=== PATIENT | female | born 1985 | race Caucasian/White ===

== ENCOUNTER 2019-05-29 15:58 | Emergency (ER) | payer OTHER, SELFPAY ==
[2019-05-29 15:59] VITALS: BP 158/85; PULSE 70; RESP 15; TEMP 36.7; O2SAT 98; BMI 49.8
--- NOTE | 2019-05-29 16:18 | ED.DCSUM_ITS ---
History of Present Illness <Damaso Benito - Last Filed: 05/29/19 16:53> Informant: Patient Onset: Today Narrative: Patient presents to the ED with right index finger laceration. Prior to arrival, she was attempting to open a can of chicken when she cut the dorsal aspect of her right index finger over the PIP joint. She went to urgent care and was referred to the ED. She denies any decreased range of motion of her right hand or decreased sensation. Tetanus status is unknown. <ChariAriana - Last Filed: 05/29/19 17:17> Chief Complaint: Laceration Past Medical History <Damaso Benito - Last Filed: 05/29/19 16:53> <ChariAriana - Last Filed: 05/29/19 17:17> - Allergies and Home Meds Allergies/Adverse Reactions: Allergies No Known Allergies Allergy (Verified 05/29/19 16:02) Primary Care Physician: Roberto Parks [Primary Care Provider] - Review of Systems General: Denies: Chills, Fever, Sweats Eyes: Denies: Visual changes - bilaterally, Diplopia ENT: Denies: Rhinorrhea, Sore throat Cardiovascular: Denies: Chest pain, Palpitations Respiratory: Denies: Dyspnea, Cough, Dyspnea on exertion Gastrointestinal: Denies: Abdominal pain, Nausea, Vomiting, Diarrhea, Melena, Hematochezia Genitourinary: Denies: Dysuria, Hematuria, Frequency Musculoskeletal: Denies: Back pain, Extremity Pain Skin: Reports: Wounds. Denies: Rash, Abscess Neurological: Denies: Headache, Weakness, Numbness <ChariAriana - Last Filed: 05/29/19 17:17> Physical Exam Vital Signs/Narrative: Vital Signs Temp Pulse Resp BP Pulse Ox 05/29/19 15:59 98.0 F 70 15 158/85 H 98 <Damaso Benito - Last Filed: 05/29/19 16:53> Vital Signs/Narrative: Vital Signs Temp Pulse Resp BP Pulse Ox 05/29/19 15:59 98.0 F 70 15 158/85 H 98 General: Well nourished, Well developed, No Acute Distress Head: Normocephalic, Atraumatic Eyes: Perrl, EOMI ENT: Moist mucous membranes, No rhinorrhea Neck: Supple, Nontender Cardiovascular: Regular rate, Regular rhythm, No murmurs Respiratory: No distress, CTA bilaterally, Chest nontender Abdomen: Soft, Nontender, Nondistended, Normal bowel sounds Back: Nontender, Normal Inspection Extremities: Nontender, No edema, - - Full range of motion of right hand. Normal strength. Skin: No rash, - - 1.5 cm linear laceration over the dorsal aspect of the right PIP joint. No active bleeding. No tendon involvement. No evidence of foreign body. Normal capillary refill. Normal two-point discrimination. Neurological: Alert, Oriented x3, Cranial nerves II-XII grossly intact, Normal Strength, Normal Sensation Psychological: Normal affect, Normal Mood <Ariana Marcelino - Last Filed: 05/29/19 17:17> Diagnostic/Tx/Re-eval - Medical Decision Making This patient with our physician per diem physical therapist assistant. Right index finger laceration on a can lid. Patient is right-hand dominant. Unsure of her last tetanus which will be updated. 2-1/2 to 3 cm. Over the PIP joint. Also skin and subcu tissue. Has normal range of motion. Neurovascular intact. Full extension to 180 degrees. Can extend against resistance. No loss of range of motion. No bony deformity. No joint involvement. No signs of foreign body. Impression: Right index finger laceration 3 cm with ER repair Tetanus updated Wound care. Suture removal in 10 days. Return with any signs of infection. <Damaso Benito - Last Filed: 05/29/19 16:53> - Medical Decision Making Patient presents to the ED with laceration over her right index PIP joint. Following discussion of risks and benefits of suture repair, I do feel patient would benefit from suture repair given the high tension area of the laceration. Patient was agreeable to this plan. Her tetanus was updated. She was educated on proper wound care and advised to keep sutures in for 7 to 10 days. She was advised to follow-up with her PCP for suture removal. Educated on signs/symptoms to return to the ED. She is provided discharge instructions and agreeable to plan. Procedure note: After reviewing risks and benefits of procedure, patient provided verbal consent. Wound was cleansed with Shur-Clens. Local infiltration of lidocaine without epinephrine was instilled into the wound and anesthesia was achieved. 2 5-0 nylon sutures were placed. Patient tolerated procedure well. Impression: Right index finger laceration. Tetanus updated. Disposition: Home stable <Ariana Marcelino - Last Filed: 05/29/19 17:17> ED Disposition <Damaso Benito - Last Filed: 05/29/19 16:53> <Ariana Marcelino - Last Filed: 05/29/19 17:17> - Plan for ED Patient: Disposition: Home or Assisted Living Diagnosis: Laceration of lower extremity Instructions: LACERATION, Extrem (Suture, Staple or Tape) Referrals: Roberto Parks [Primary Care Provider] - Additional Instructions: Keep sutures in 7-10 days
[2019-05-29] MEDS: Diphth,Pertuss(Acell),Tet Vac 0.5 ML Vial IM (16:29)
== END 2019-05-29 17:15 | disposition home or self-care (01) ==
PROVIDERS: Emergency Provider Physician Assistant; Family Provider Family Medicine
DX: S61.210A Laceration without foreign body of right index finger without damage to nail, initial encounter (principal); Z23 Encounter for immunization; W26.8XXA Contact with other sharp object(s), not elsewhere classified, initial encounter; Y93.9 Activity, unspecified; Y92.9 Unspecified place or not applicable
CPT/HCPCS: 12002; 90471; 90715; 99283